=== PATIENT | female | born 1960 | race African-American/Black ===

== ENCOUNTER 2016-12-10 09:48 | Emergency (ER) | payer MEDICARE, OTHER ==
[~2016-12-10 09:48] MED LIST: AMANTADINE100 M1 PO; ANTIVERT PO; ANXIETY PILL; ASPERCREME HE70.8 GM TP; ASPIRIN81 M1 PO; BACTRIM DS TABL1 TA2 PO; BAYER ASPIRIN325 M1 PO; CRANBERRY307 MG PO; DEPRESSION PILL; ECOTRIN325 MG PO; EFFEXOR-XR150 MG PO; FISH OIL 1,21 CAP.EC PO; LASIX PO; LASIX80 MG PO; LORTAB 5-325 M1 EACH PO; MINIPRESS1 MG PO; MOBIC PO; MOBIC15 MG PO; MUSCLE RELAXER; NORVASC10 MG PO; NYSTATIN15 GM OINT EXT; POTASSIUM CHLO10 MEQ PO; PROZAC PO; REGLAN10 MG PO; SAPHRIS10 MG SL; SEROQUEL PO; STEROID; STOOL SOFTENER; VERAPAMIL ER240 M1 PO; VERAPAMIL ER240 MG PO; VERAPAMIL SR240 MG PO; VITAMIN D250000 UNIT PO; VOLTAREN75 MG PO; ZANAFLEX4 M1 PO; ZESTRIL40 MG PO; [UNRECOGNIZED DRUG - OTHER]
[2016-12-10] MEDS ORDERED: GABAPENTIN300 M2 (09:59)
[2016-12-10] MEDS ORDERED: LORTAB 7.5-3251 EACH (10:00)
== END 2016-12-10 11:20 | disposition home or self-care (01) ==
LOC: SED 09:48
DX: Z76.0 Encounter for issue of repeat prescription (principal); G89.29 Other chronic pain; M25.552 Pain in left hip; M25.551 Pain in right hip; F19.20 Other psychoactive substance dependence, uncomplicated; I10 Essential (primary) hypertension; F32.9 Major depressive disorder, single episode, unspecified; F20.9 Schizophrenia, unspecified; F41.9 Anxiety disorder, unspecified; F17.210 Nicotine dependence, cigarettes, uncomplicated; Z90.49 Acquired absence of other specified parts of digestive tract; Z86.73 Personal history of transient ischemic attack (TIA), and cerebral infarction without residual deficits; Z88.8 Allergy status to other drugs, medicaments and biological substances; Z79.82 Long term (current) use of aspirin; Z79.899 Other long term (current) drug therapy
CPT/HCPCS: 99282

== ENCOUNTER 2017-02-09 17:50 | Emergency (ER) | payer MEDICARE, OTHER ==
[~2017-02-09] VITALS: Ht 162.6 cm; Wt 112.0 kg
--- NOTE | ~2017-02-09 | CR219 ---
[facility] A Service of [facility] RADIOLOGY TEXT RESULTS PATIENT: MARCO LEE LOCATION: [facility] : 62 UNIT #: [id number] AGE: [address]: Yun Esquivel APRN SEX: F ORDER DR: [id number] [facility] [address] [place], [place] [address] [id number] E MR#: [id number] Acc #: [id number] NAME: MARCO LEE : 1960 SEX: F STUDY DATE/TIME: 02/09/2017 19:46 UNIT: [facility] ROOM: STUDY DESCRIPTION: CR Sacrum and Coccyx Min 2 Vie Attending Physician: Yun Esquivel A.P.R.N. Ordering Physician: Yun Esquivel A.P.R.N. Primary Care Physician: Babatunde Pope M.D. MEDICAL IMAGING REPORT This report is preliminary unless electronic signature is present EXAM Sacrum and coccyx 02/09/2017 1946 hours HISTORY 56-year-old woman who fell today complaining of pain in the sacrum and coccyx. COMPARISON 02/02/2016 pelvis film. FINDINGS AP views of the sacrum and lateral view of the sacrum and coccyx were performed. There is sclerotic degenerative change of both hips and sacroiliac joints. No sacral or coccygeal fracture is seen. Films are limited by large body habitus. IMPRESSION There are degenerative changes at both sacroiliac joints and both hip joints similar to 02/02/2016 pelvis film. No fracture of the sacrum or coccyx is seen. Films are limited by large body habitus. Dictated by... Pau Soto M.D. THIS IS AN ELECTRONICALLY VERIFIED REPORT Pau Soto M.D. at 02/11/2017 9:03 AM REED/john TD: 02/11/2017 07:15 JOB #: [id number] MEDICAL IMAGING REPORT [facility] A Service of [facility] RADIOLOGY TEXT RESULTS PATIENT: MARCO LEE LOCATION: [facility] : 62 UNIT #: [id number] AGE: [address]: Yun Esquivel APRN SEX: F ORDER DR: Page 1 of 1 COPY
--- NOTE | ~2017-02-09 | CR230 ---
[facility] A Service of [facility] RADIOLOGY TEXT RESULTS PATIENT: MARCO LEE LOCATION: [facility] : 62 UNIT #: [id number] AGE: [address]: Yun Esquivel APRN SEX: F ORDER DR: [id number] [facility] [address] [place], [place] [address] [id number] E MR#: [id number] Acc #: [id number] NAME: MARCO LEE : 1960 SEX: F STUDY DATE/TIME: 02/09/2017 19:42 UNIT: [facility] ROOM: STUDY DESCRIPTION: CR Shoulder Min 2 View Rt Attending Physician: Yun Esquivel A.P.R.N. Ordering Physician: Yun Esquivel A.P.R.N. Primary Care Physician: Babatunde Pope M.D. MEDICAL IMAGING REPORT This report is preliminary unless electronic signature is present EXAM 3 views right shoulder. DATE 02/09/2017 HISTORY Right shoulder pain after falling today. COMPARISON None. FINDINGS No fracture or joint dislocation. There is moderate glenohumeral joint space narrowing with undersurface osteophyte formation. Subchondral cystic changes demonstrated within the greater tuberosity. There is moderate osteoarthritic change within the AC joint with undersurface spurring. Imaged right lung apex appears clear. IMPRESSION 1. 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 No acute findings. Dictated by... Theresa Lepe M.D. THIS IS AN ELECTRONICALLY VERIFIED REPORT Theresa Lepe M.D. at 02/12/2017 9:53 AM LL/aileen TD: 02/11/2017 06:59 JOB #: [id number] [facility] A Service of [facility] RADIOLOGY TEXT RESULTS PATIENT: MARCO LEE LOCATION: [facility] : 62 UNIT #: [id number] AGE: [address]: Yun Esquivel APRN SEX: F ORDER DR: MEDICAL IMAGING REPORT Page 1 of 1 COPY
[~2017-02-09 17:50] MED LIST changes: +GABAPENTIN300 M2; +LORTAB 7.5-3251 EACH
== END 2017-02-09 20:25 | disposition home or self-care (01) ==
LOC: CED 17:50 → CFTX 17:50
DX: S46.911A Strain of unspecified muscle, fascia and tendon at shoulder and upper arm level, right arm, initial encounter (principal); S30.0XXA Contusion of lower back and pelvis, initial encounter; E78.5 Hyperlipidemia, unspecified; F41.9 Anxiety disorder, unspecified; F32.9 Major depressive disorder, single episode, unspecified; Z79.899 Other long term (current) drug therapy; F17.210 Nicotine dependence, cigarettes, uncomplicated; W18.30XA Fall on same level, unspecified, initial encounter; Y92.239 Unspecified place in hospital as the place of occurrence of the external cause
CPT/HCPCS: 72220; 73030; 96372; 99283; J1885